=== PATIENT | female | born 1990 | race Two or more races ===

== ENCOUNTER 2017-10-25 01:33 | Emergency (ER) | payer SELFPAY ==
[~2017-10-25] VITALS: Ht 152.4 cm; Wt 81.6 kg
[2017-10-25 01:50] VITALS: BP 120/60
[2017-10-25] MEDS ORDERED: Oxymetazoline 0.05% Na Spray 30ml NASAL ONE (02:45)
[2017-10-25] MEDS ORDERED: Pseudoephedrine 30mg tab ORAL ONE (02:45)
[2017-10-25] MEDS ORDERED: PSEUDOEPHEDRINE30 MG PO (03:25)
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
[2017-10-25 03:50] VITALS: BP 125/64
[2017-10-25] MEDS ORDERED: IBUPROFEN600 MG ORAL (04:06)
[2017-10-25 04:35] VITALS: BP 125/64
== END 2017-10-25 04:35 | disposition home or self-care (01) ==
LOC: EDSEX 01:33 → EDBD 01:33 → EMR 01:52
DX: S02.2XXA Fracture of nasal bones, initial encounter for closed fracture (principal); Y04.2XXA Assault by strike against or bumped into by another person, initial encounter; Y92.9 Unspecified place or not applicable
CPT/HCPCS: 70486; 99283